=== PATIENT | male | born 2000 | race Two or more races ===

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

== ENCOUNTER → 2020-01-14 | Emergency (ER) | payer SELFPAY ==
[~2020-01-14] VITALS: Ht 167.6 cm; Wt 59.0 kg
[2020-01-14 03:20] VITALS: BP 148/94
== END | disposition home or self-care (01) ==
LOC: ER 03:05
DX: R51 Headache (principal); M79.10 Myalgia, unspecified site; V58.5XXA Driver of pick-up truck or van injured in noncollision transport accident in traffic accident, initial encounter; Y93.89 Activity, other specified; Y99.8 Other external cause status; Y92.89 Other specified places as the place of occurrence of the external cause
CPT/HCPCS: 70450; 71045; 72125